=== PATIENT | female | born 1960 | race Caucasian/White ===

== ENCOUNTER 2017-05-18 23:05 | Emergency (ER) | payer BC, SELFPAY ==
[2017-05-18] MEDS ORDERED: HYDROcodone/Acetaminophen 10/325 mg Tablet ONE (23:42)
[2017-05-18] MEDS ORDERED: Ibuprofen 800 MG TAB ONE (23:43)
--- NOTE | 2017-05-19 09:51 | RAD ---
LEFT HEEL 2 VIEWS: Date: 05/18/17 FINDINGS: No calcaneal fracture seen. There is ossification at the insertion of the Achilles tendon. There are several tiny bony flecks seen in the soft tissues at the insertion of the Achilles tendon and there appears to be focal swelling here. I would be suspicious for damage to the distal end of the Achill es tendon, but MRI would be needed to prove this. There are some calcifications superior to the post erior calcaneus of uncertain etiology, but more likely old than new. A tiny calcaneal spur was noted . IMPRESSION: Calcaneus itself intact, but I would be suspicious of the damage to the Achilles tendon at its inser tion. POS: HOME
== END 2017-05-18 23:59 | disposition home or self-care (01) ==
LOC: BURERS 23:05
DX: S86.012A Strain of left Achilles tendon, initial encounter (principal); E03.9 Hypothyroidism, unspecified; F32.9 Major depressive disorder, single episode, unspecified; Z79.899 Other long term (current) drug therapy; W18.30XA Fall on same level, unspecified, initial encounter
CPT/HCPCS: 29515